=== PATIENT | male | born 1980 | race Caucasian/White ===

== ENCOUNTER 2016-07-18 16:00 | Inpatient (IN) | payer BC ==
[~2016-07-18] VITALS: Ht 180.3 cm; Wt 74.0 kg
--- NOTE | ~2016-07-18 | DS ---
PATIENT'S NAME: CAREN MADRIGAL [facility] AGE: 36 Y [address] ROOM: [address] [address] LOCATION: TU ADMIT DATE: 07/18/2016 Discharge Summary DISCHARGE DATE: 07/20/2016 FAMILY PHYSICIAN: Aurea Koch PA-C ATTENDING PHYSICIAN: Nik Cuba FINAL DIAGNOSES: 1. Cerebrovascular accident versus complex migraine, status post tPA. 2. Palpitations. HISTORY OF PRESENT ILLNESS: Please see the history and physical dictated by Dr. Nik Cuba for details of admission. In short, the patient presented with neurologic deficits to the [facility]. In coordination with the Tele-Neuro consultation, the decision was made to give the patient tPA. He was subsequently transferred to [facility]. LABORATORY STUDIES: Cholesterol is 171, triglyceride 71, HDL 75, and LDL 82. Urine drug screen was negative. RADIOLOGY STUDIES: A CT scan of his head done on the second hospital day for the 24 hours post tPA did not show any evidence of hemorrhage. MRA of the neck was normal, MRI of the brain without contrast was normal, and an MRA of the brain was normal as well. CARDIOVASCULAR STUDIES: An echocardiogram showed that his ejection fraction was 60%. He had normal ventricular size. His right atrium was mildly dilated. Bubble study was done and there was no obvious pexct-ud-glbo shunt. HOSPITAL COURSE: The patient was admitted into the Intensive Care Unit after receiving tPA. His blood pressures were monitored and these were on the low- side; so, he was given IV fluids to help with perfusion. He did have all the appropriate studies. Speech Therapy did see him and they felt that he was stable to eat; so, we are able to let him eat and then have oral medications. After [address] scan returned negative, he was transferred to the Neurotrauma Unit. Neurology did see him here and they were torn between diagnosis of acute CVA that was everted with tPA or complex migraine. The patient was monitored, he continued to do well, and he was able to ambulate. He did have some episodes where he would feel palpitations and would have some episodes of feeling mildly anxious. He was monitored on telemeter. His heart rates would elevate, but there was no arrhythmia noted. It was felt by both the primary team and Neurology that he was stable for discharge with followup as an outpatient. He is discharged to home. He will follow up with Dr. Anderson, an naphthalene operator helper, [facility] specialist on August 03 at 11 a.m. Follow up with Dr. Harman and Maria Guadalupe Tobin on August 26 at 11 a.m. He will see Dr. Arevalo in 1 week. He did have a Kapil of [employer] monitor and event PATIENT'S NAME: CAREN MADRIGAL [facility] AGE: 36 Y [address] ROOM: [place] [address] LOCATION: [facility] ADMIT DATE: 07/18/2016 Discharge Summary DISCHARGE DATE: 07/20/2016 FAMILY PHYSICIAN: Aurea Koch PA-C ATTENDING PHYSICIAN: Nik Cuba recorder placed. DISCHARGE MEDICATIONS: Aspirin 81 mg daily, Lipitor 20 mg daily, and the patient asked for something for anxiety and is sent with Xanax 0.25 every 8 hours as needed for anxiety with a total of 20 pills written for. PROGNOSIS: Overall, prognosis at discharge is good. MELYSSA THORNTON MD LAW/modl /[id number] CC: Juan M Anedrson MD d: 07/21/16 0026 t: 08/02/16 1642, DISCHARGE SUMMARY
--- NOTE | ~2016-07-18 | CON ---
PATIENT'S NAME: KAITLIN [facility] AGE: 36 Y [address] ROOM: [address] [address] LOCATION: TU ADMIT DATE: 07/18/2016 Consultation DISCHARGE DATE: 07/20/2016 FAMILY PHYSICIAN: Aurea Koch PA-C ATTENDING PHYSICIAN: LOGAN CORDOVA This 36-year-old gentleman is referred for rehab evaluation, admitted on 07/18/2016 with expressive aphasia and difficulty somehow to understand also. He also told me that he had right distal temporal visual field difficulty with vision, double vision, with some bright spots also. He denied any headache. No trauma, no dizziness, no nausea, no vomiting. Denied any similar episodes in the past. He could move his right upper and lower extremity. He felt a little bit fluttering in his chest with some anxiety. Otherwise, he was okay. No fever, no cough, no expectoration, no shortness of breath. At the present time, he is alert, well oriented x3. Vitals blood pressure 124/62, temperature 97.9, pulse 73 and regular, respiration rate is 15. He stands 5 feet 11 inches and weighs 74.0 kg. Head normocephalic. Cranial nerves 2 through 12 are within normal limits except for the right distal visual field, he still sees double and he has to tilt his head towards the right to clearly see the right side. He is able to talk. His speech is clear and not wet. He is well oriented. He seems to be well able to swallow. Also, tongue and soft palate are moving symmetrical. His speech is clear and not wet. He does not have nystagmus. Denied any headaches as I mentioned. Cranial nerves otherwise 2 through 12 are within normal limits. He can move all four. Muscle strength is about 4+ throughout. Has good bowel and bladder control. Reflexes are present and equal throughout. He is on the following medications. 1. Lactate Ringer. 2. Aspirin. 3. Tylenol. 4. NaCl 0.9%. 5. Xanax. 6. Labetalol hydrochloride. ASSESSMENT AND PLAN: I feel this gentleman has done well. He will continue on PT, OT, and speech. Please see the orders. PATIENT'S NAME: KAITLIN [facility] AGE: 36 Y [address] ROOM: [place] [address] LOCATION: [facility] ADMIT DATE: 07/18/2016 Consultation DISCHARGE DATE: 07/20/2016 FAMILY PHYSICIAN: Aurea Koch PA-C ATTENDING PHYSICIAN: LOGAN CORDOVA I would like him not to drive until he is evaluated. Should avoid any rough play and also any alcohol beverage. I will see him in 1 week in my office post discharge. All the above and signs and symptoms of stroke. All their questions were answered. Thank you for this referral. I will continue to follow alongside with you. MD RYANN ROQUE/modl /[id number] d: 07/20/16 1347 t: 07/21/16 1140, CONSULTATION REPORT
--- NOTE | ~2016-07-18 | CON ---
[facility] 36 [facility] [address] ROOM: [place] [address] LOCATION: TU ADMIT DATE: 07/18/2016 Consultation DISCHARGE DATE: 07/20/2016 FAMILY PHYSICIAN: Aurea Koch PA-C ATTENDING PHYSICIAN: Nik Cuba DATE OF CONSULTATION: 07/19/2016 TIME: 0845 hours in the morning. CHIEF COMPLAINT: Status post tPA for expressive aphasia. HISTORY OF PRESENT ILLNESS: This is a 36-year-old male, whom we were initially contacted for tPA advice. He presented 11 o'clock in the morning with difficulty focusing. He also complained of paresthesia around his lips and tongue and had expressive aphasia. He had a slight headache with no nausea and vomiting. His prior medical history was negative and a CT was negative. During the risks and benefits with the patient, the patient decided to proceed with tPA. A full list of relative and absolute contraindications were completed with the patient. He received tPA in [place], [place], and was transferred here. At the time of our evaluation, he has some expressive aphasia, but the patient states it is much better. He denies any headache at this time. His vision is somewhat blurry and extreme peripheral. His aphasia is most noticeable when we do the stroke scale, and when asked to explain how he is feeling. He denies any shortness of breath or palpitations. Denies any chest pain. Denies any trauma or loss of consciousness. Denies history of migraines. Denies any excessive stress in his life at this time. No GI complaints, abdominal pain, diarrhea, or constipation present. REVIEW OF SYSTEMS: A 10-point review of systems was completed and otherwise as mentioned in the HPI or negative. MEDICATIONS: His home medications are on the chart and reviewed by me. PAST MEDICAL HISTORY: Benign. MEDICATIONS: The patient is on no medication, and he is not treated for anything right now. PAT[facility] AGE: 36 Y [address] ROOM: [place] [address] LOCATION: [facility] ADMIT DATE: 07/18/2016 Consultation DISCHARGE DATE: 07/20/2016 FAMILY PHYSICIAN: Aurea Koch PA-C ATTENDING PHYSICIAN: Nik Cuba PAST SURGICAL HISTORY: He has had no surgeries. SOCIAL HISTORY: He is . He works as an certified public accountant. He does not use smoking or does not use tobacco or alcohol. Nor does he use any illicit drugs. He is not under any extreme stress as of late. FAMILY HISTORY: Includes his father had history of liver problems. There are no history of clotting disorders or stroke reported in his family. PHYSICAL EXAMINATION: VITAL SIGNS: His temperature is 98.5, pulse 97 and regular, respirations 15, blood pressure 120/61. He is saturating 100% on room air. GENERAL: The patient is alert and oriented x4. He is appropriate and conversive with the exam, although he does demonstrate some word-finding difficulties. Of note, he appears slightly anxious. HEENT: His head is normocephalic and atraumatic. Pupils are equal, round, and reactive to light. Extraocular movements are intact. His tongue is midline. NECK: Supple with no nuchal rigidity. HEART: Regular rate and rhythm. LUNGS: Clear to auscultation bilaterally. NEUROLOGIC: The patient is alert and oriented x4. Pupils are equal, round, and reactive to light bilaterally. NEUROLOGIC: Cranial nerves 2 through 12 are intact. Sensation intact to face, bilateral upper and lower extremities. Strength is 5/5 in bilateral upper and lower extremities. NIH Stroke Scale is that level of consciousness is zero, level of consciousness questions is zero, level of consciousness commands is zero, his best gaze is zero, visual zero, facial palsy zero, motor left arm zero, motor right arm zero, motor left leg zero, motor right leg zero, limb ataxia zero, sensory zero, best language one, dysarthria 0, extinction and inattention are zero for a total NIH stroke score of 1. DIAGNOSTIC STUDIES: Include a CT, MRI, and MRA. The CT and MRI and MRA are all negative for any acute intracranial findings. His EKG showed sinus arrhythmia with short IA interval. His echo does show some mild right atrial enlargement. Negative bubble study on the echo. His lipid panel does show an LDL of 82. ASSESSMENT AND PLAN: In summary, this is a 36-year-old with no known medical history with possibility of an aborted CVA and persistent expressive aphasia. 1. Aborted CVA. The patient is status post tPA administration at the PATIENT'S NAME: CAREN MADRIGAL [facility] AGE: 36 Y [address] ROOM: [address] [address] LOCATION: [facility] ADMIT DATE: 07/18/2016 Consultation DISCHARGE DATE: 07/20/2016 FAMILY PHYSICIAN: Aurea Koch PA-C [facility]ENDING [facility]IC[facility] He has been maintained post tPA management in the intensive care. A complete stroke workup has been ordered and examined. It is possible that the patient was having a stroke, and the stroke was aborted by the tPA. We will plan on sending the patient home on aspirin 81 mg and also low-dose statin. 2. Possibility of complex migraine. Although the patient has never had any migraines before this aphasia, certainly could be brought on by a complex migraine. We will monitor the patient for this symptom. 3. The plan of care was reviewed with Dr. Osborne. Dr. Chester was present and examined the patient. We would like to thank you for the opportunity to take care of this pleasant young gentleman. VAIBHAV SOLIZ APRN FOR ELLI CHESTER MD PP/javier /[id number] d: 07/21/162011 t: 07/26/16 1300, CONSULTATION REPORT
--- NOTE | ~2016-07-18 | CON ---
PATIENT'S NAME: CAREN MADRIGAL [facility] AGE: 36 Y [address] ROOM: [place] [address] LOCATION: [facility] ADMIT DATE: 07/18/2016 Consultation DISCHARGE DATE: 07/20/2016 FAMILY PHYSICIAN: Aurea Koch PA-C ATTENDING PHYSICIAN: Nik Cuba ADDENDUM: #3. Speech therapy will be continued. OT and PT, the patient is at baseline and therefore do not need to be continued. We addressed the possibility of having outpatient speech therapy, but the patient did not want to proceed with that since the speech and dysphagia has gotten so much better since admission. VAIBHAV SOLIZ APRN FOR ELLI CHESTER MD PP/modl /[id number] d: 07/21/161950 t: 08/08/161641, CONSULTATION REPORT
--- NOTE | ~2016-07-18 | HP ---
PATIENT'S NAME: CAREN MADRIGAL [facility] AGE: 36 Y [address] ROOM: [address] [place] [id number] LOCATION: [facility] ADMIT DATE: 07/18/2016 History & Physical DISCHARGE DATE: FAMILY PHYSICIAN: PHYSICIAN, UNKNOWN ATTENDING PHYSICIAN: LOGAN CORDOVA DATE OF SERVICE: PRIMARY CARE PHYSICIAN: None. CHIEF COMPLAINT: Expressive aphasia. HISTORY OF PRESENT ILLNESS: This is a 36-year-old male who was transferred from an outlying facility for persistent expressive aphasia. As per history obtained from the referring physician from [place], [place], the patient presented at about 11 o'clock with expressive aphasia. Initially, the patient presented to the ER in [place], [place], with dizziness. He then started complaining of tingling and numbness in his bilateral upper extremity and around his face. At that point of time, it was thought that the patient had an anxiety episode. He was given Ativan. CT head was done at that point of time and was negative. The patient then started having persistent expressive aphasia and also comprehension issues and dysarthria. Subsequently, this was thought to be a stroke. Teleneurology Team from [facility] was then contacted by the referring physician. Decision was made for the patient to undergo tPA therapy at the referral hospital. The patient underwent tPA administration at the referral hospital at that point of time. He was found to be within the time frame. Hospitalist team was then asked and consulted for admission after tPA administration to the ICU. At the time of my examination in the ICU, the complains of headache. He currently rates his headache as 4/10 in intensity. He did have some blurry vision initially. He still has some persistent expressive aphasia. Motor- flores, he appears to be normal. He has good strength in bilateral upper and lower extremity. Sensation is intact in bilateral upper and lower extremity. Denies any chest pain. Denies any shortness of breath. Denies any head trauma or loss of consciousness. No abdominal pain, diarrhea, or constipation reported. No other complaints at this point in time. REVIEW OF SYSTEMS: A 10-point review of systems done and was, otherwise, negative except as mentioned above. PATIENT'S NAME: CAREN MADRIGAL [facility] AGE: 36 Y [address] ROOM: [id number] [place], [place] [address] LOCATION: [facility] ADMIT DATE: 07/18/2016 History & Physical DISCHARGE DATE: FAMILY PHYSICIAN: PHYSICIAN, UNKNOWN ATTENDING PHYSICIAN: LOGAN CORDOVA MEDICATIONS: Per JUL. PAST MEDICAL HISTORY: None reported. PAST SURGICAL HISTORY: None reported. SOCIAL HISTORY: Denies smoking or alcohol use currently. FAMILY HISTORY: History of liver problems in father. No history of clotting disorders or stroke reported in family. PHYSICAL EXAMINATION: VITAL SIGNS: Temperature 98.5; pulse 97, regular; respirations 13; blood pressure 109/63; saturation 100% on room air. GENERAL: The patient is alert and oriented x3. Answers questions appropriately. He does have expressive aphasia and does not have a good word finding. HEENT: Head; normocephalic, atraumatic. Pupils are equal, round, and reactive to light. Extraocular muscles are intact. Oropharynx moist. NECK: Supple. No nuchal rigidity. Tongue midline. HEART: Regular rate and rhythm. LUNGS: Clear to auscultation bilaterally. ABDOMEN: Soft, nontender, nondistended. Bowel sounds are present. EXTREMITIES: No clubbing, cyanosis, or edema. VASCULAR: Pulses 2+ distally bilaterally. NEUROLOGIC: The patient is alert and oriented x3. Pupils are equal, round, and react to light bilaterally. Cranial nerves appear to be intact. Sensation intact on the face. Sensation intact in bilateral upper and lower extremities. Strength 5/5 in bilateral upper and lower extremities. No visual changes reported by the patient. Tongue is midline. Expressive aphasia present. DIAGNOSTIC STUDIES: Studies were reviewed from the referral hospital. CT head was reportedly negative from the referral hospital. MRI and MRA pending at [facility]. EKG showed sinus arrhythmia with a short AL interval and a rate of 89 beats per minute. No acute ST changes noted. A CMP showed potassium 3.25, chloride 97.2, platelets 180. CBC showed hematocrit 43.4, hemoglobin 15.6, white count 5.55, platelets 180. CK-MB 1.11. Albumin 4.2. Creatinine 0.76. Total protein 6.6. Calcium 8.7, sodium 139, carbon dioxide 20, BUN 13. ALT PATIENT'S NAME: CAREN MADRIGAL [facility] AGE: 36 Y [address] ROOM: [address] [address] LOCATION: [facility] ADMIT DATE: 07/18/2016 History & Physical DISCHARGE DATE: FAMILY PHYSICIAN: PHYSICIAN, UNKNOWN ATTENDING PHYSICIAN: LOGAN CORDOVA 16, AST 18, total bilirubin 0.7, alkaline phosphatase 55. LDH 143. Creatine kinase 95. ASSESSMENT AND PLAN: A 36-year-old male with CVA and persistent expressive aphasia. 1. Cerebrovascular accident. The patient is status post tPA administration at the referral hospital. He will be admitted to the ICU. We will place him on the stroke protocol. Teleneurology consult will be obtained for the patient. We will monitor his blood pressure very closely. The patient will get a 2D echocardiogram, MRI, and MRA. 2. Deep vein thrombosis prophylaxis. SCD. LOGAN CORDOVA MD MT/javier /[id number] D: [id number] T: 100 HISTORY & PHYSICAL
--- NOTE | ~2016-07-18 | ECHO ---
Transthoracic Echocardiography Report (TTE) Demographics Patient Name CAREN MADRIGAL Date of Study 07/19/2016 Patient Number [id number] Visit Number [id number] Date of 1980 Room Number G6203 Accession Number [id number] Gender Male Age 36 year(s) Referring Rosa Elena Ramsay MD Health Safety Coordinator Vanita Webber Physician [facility] Guerline Villar Physician Interpreting [place] Engine Boss Physician Bertin Supervising Ordering Physician Rosa Elena Ramsay MD, MD/MLP Nurse Stress Hims Clerk Conclusions Contractility Score Summary Normal Left Ventricular contractility was noted. Summary The estimated left ventricular ejection fraction is 60%. Normal left ventricle size and function. The right atrium is mildly dilated. Bubble study was done, there is no obvious right to left shunt. Procedure Type of Study TTE procedure:2D Echocardiogram, M-Mode, Doppler , Color Doppler, Contrast study. Procedure Date Date: 07/19/2016 Start: 10:31 AM Study Location: Inpatient Portable Technical Quality: Fair due to lung interference. Indications:CVA. Appropriate Use Criteria: 9 Patient Status: Routine HR: 66 bpm BP: 122/75 mmHg M-Mode/2D Measurements LV Diastolic Dimension: 5.3 cm LV Systolic Dimension: 3.38 cm LV Septum Diastolic: 0.72 cm LV PW Diastolic: 0.63 cm AO Root Dimension: 2.7 cm Cardiac Output: 4.61 l/min LA Dimension: 3 cm LVOT: 2.2 cm LVOT VTI: 18.4 cm RV Base: 3.99 cm LV Stroke volume: 69.91 ml RV Length: 6.71 cm TAPSE: 2.56 cm TDI-S': 17.8 cm/s Doppler Measurements AV Peak Velocity: 1.06 m/s MV Peak E-Wave: 0.69 m/s AV Peak Gradient: 4.49 mmHg MV Peak A-Wave: 0.46 m/s AV Mean Gradient: 2 mmHg MV E/A Ratio: 1.51 LVOT Peak Velocity: 0.87 m/s MV P1/2t: 79 msec MV Deceleration Time: 246 msec TR Gradient:11.16 mmHg PV Peak Velocity: 0.67 m/s PV Peak Gradient: 1.79 mmHg E' Septal Velocity: 0.15 m/s A' Septal Velocity: 0.09 m/s E' Lateral Velocity: 0.21 m/s A' Lateral Velocity: 0.08 m/s Findings Left Ventricle Normal left ventricle size and function. Right Ventricle Normal right ventricle structure and function. Left Atrium Normal left atrial size. Bubble study was done, there is no obvious right to left shunt. Right Atrium The right atrium is mildly dilated. Mitral Valve Normal mitral valve structure and function. Trivial mitral regurgitation by color Doppler. Aortic Valve Normal aortic valve structure and function. Tricuspid Valve Normal tricuspid valve structure and function. Trivial tricuspid regurgitation by color Doppler. Pulmonic Valve Normal pulmonic valve structure and function. Pericardial Effusion No evidence of pericardial effusion. Miscellaneous Visualized portions of the aortic root and ascending aorta appear normal in size. Pleural Effusion No evidence of pleural effusion. Contractility Score LV regional wall motion:(0-Non visualized 1-Normal 2-Hypokinesis 3-Akinesis 4-Dyskinesis 5-Aneurysm) Signature dtt: BERTIN MINOR dtd: 07/19/16 1031 Physician Self Edit
--- NOTE | 2016-07-18 18:15 | NUR ---
Significant Event: alert, aphasia. Follows commands, equal strength bilaterally. Ataxia to R) upper arm. Frontal headache tylenol given. NPO except meds. Afebrile. VSS. On RA. Need UA when voids. NS at 70 ml/hr, 500 ml bolus given. Bilateral AC IV's good blood return. Bedrest. Family at bedside. Follow up: MRI and MRA of head and neck today.
[2016-07-18 21:37] LABS: BARBITURATE NEGATIVE (NEGATIVE); COCAINE NEGATIVE (NEGATIVE); OPIATES NEGATIVE (NEGATIVE)
[2016-07-18 21:38] LABS: AMPHETAMINE NEGATIVE (NEGATIVE)
--- NOTE | 2016-07-19 05:02 | NUR ---
Patient A/Ox3. Complains of slight headache, but otherwise no other pain, numbness or tingling. PERRLA. Continues to have slight expressive aphasia and some blurry vision in R) peripheral vision. SR with HR 60-100s. Afebrile. Continues on RA with o2 sats in upper 90s. No BM this shift but does have active bowel sounds. Follow up: continue tPA protocol. PT/OT/Speech to see patient today. CT 24hr post tPA.
--- NOTE | 2016-07-19 11:11 | NUR ---
CONSULT RECEIVED FOR DIET ED PER STROKE PROTOCOL. CT ASSEMBLER INSTALLER STRUCTURES WAS (-). MRI WAS NORMAL. DEFERRING DIET ED AT THIS TIME.
--- NOTE | 2016-07-19 14:46 | NUR ---
Occupational Therapy Note: Pt recieved TPA 07/18 at 1520 per RN therefore OT will see at the next therapy date per TPA protocol. Thank you, Eyad Fam, OTR/L
--- NOTE | 2016-07-19 16:00 | NUR ---
D: Physical Therapy Note. I: Patient's nurse reports 24 hours post tPA will be at 1520 this afternoon. I attempted to see patient at 1540 to begin Physical Therapy, patient was out of hospital room for CT scan. P: Plan to see patient to begin Physical Therapy tomorrow morning, 07/20/16. 07/19/16 Nya Hyatt,PT
--- NOTE | 2016-07-19 18:28 | NUR ---
Significant Event: Patient transferred from ICU at 1710. Patient's condition stable. VSS. Room air with sats in the mid 90s. at bedside. Pleasant and cooperative with cares. Follow up:
--- NOTE | 2016-07-19 19:08 | NUR ---
Significant Event:Patient is A/Ox3,follows all commands,no deficits. Denies CARLTON, last tylenol at 0530. Right peripheral vision is slightly blurry but still able to see/distinguish what things are. CT, MRI/MRA scans done today. SR with HR 60-80. AFebrile. Denies numbness/tingling. On RA, lungs ascultated clear/diminished. Uses urinal to void. Active bowel sounds. No bm this shift. Reposistions self in bed. Made NTU status post 1530 CT. SBP 110-130's,goal to keep SBP>120. GAVe 500ml NS bolus and increased NS from 70ml/h to 200ml/h, SBP did range in 130's post bolus.Cardiac diet, no issues with swallowing. Follow up: Transfer to NTU. Continue to monitor SBP/neuro.
--- NOTE | 2016-07-20 05:56 | NUR ---
Significant Event: Patient is alert and oriented x3. VSS. PERRLA. Follows commands. Denies pain. Denies CARLTON. Denies N/T. Slight blurred vision but has improved. NIHSS-0. SR- to SB. Goal is to keep SBP greater than 120. Room air-clear. Cardiac diet.Takes pills whole. Last BM 07/18. Up with SBA. PIV in Left FA with LR at 125 ml/hr. Equal strength throughout. Follow up: Monitor SBP.
[2016-07-20] MEDS ORDERED: ASPIRIN (CHILDR81 MG PO (10:43)
[2016-07-20] MEDS ORDERED: LIPITOR20 M1 PO (10:44)
--- NOTE | 2016-07-20 14:09 | NUR ---
Significant Event: PATIENT ALERT AND ORIENTED X3. VS STABLE UPON DISCHARGE. IV DC'D, PATIENT TOLERATES WELL. REVIEWED FOLLOW UP APPOINTMENTS AND DISCHARGE INSTRUCTIONS WITH PATIENT AND SPOUSE. NEW MEDICATION INFORMATION AND DVT PREVENTION WAS PROVIDED. SCRIPT GIVEN. PATIENT LEFT VIA WHEELCHAIR WITH TRANSPORT TEAM, , AND ALL OF BELONGINGS. Follow up:
--- NOTE | 2016-07-20 15:01 | NUR ---
Reviewed chart, pt discharged home today with . Independent in self care with speech therapist documenting mild expressive and receptive aphasia. Has followup appt with Dr Arevalo on 07/28.
== END 2016-07-20 13:37 | disposition disaster alternative care site (69) | DRG 102 ==
LOC: GNTU 16:46 → GICU 16:46 → GNTU 07-19 17:16
PROVIDERS: ADMIT Family Medicine
DX: G43.109 Migraine with aura, not intractable, without status migrainosus (principal); I63.9 Cerebral infarction, unspecified; R47.01 Aphasia; Z92.82 Status post administration of tPA (rtPA) in a different facility within the last 24 hours prior to admission to current facility; R00.2 Palpitations
CPT/HCPCS: J7030; J7040; J7120